=== PATIENT | male | born 1980 | race Caucasian/White ===

== ENCOUNTER 2020-04-17 02:48 | Emergency (ER) | payer MEDICARE, MEDICAID ==
[~2020-04-17] VITALS: Ht 182.9 cm; Wt 100.0 kg
[~2020-04-17 02:48] MED LIST: CLIN-97 PO
[2020-04-17] MEDS ORDERED: LORazepam 2 mg/ml vial IM ONE (02:55)
[2020-04-17] MEDS ORDERED: diphenhydrAMINE 50 mg/ml inj IM ONE (02:55)
[2020-04-17] MEDS ORDERED: haloperidol lactate 5mg/ml inj IM ONE (02:55)
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
[2020-04-17] MEDS ORDERED: haloperidol lactate 5mg/ml inj ONE (03:00)
[2020-04-17] MEDS ORDERED: normal saline 1000ml 1,000 ML IV ONE (03:05)
[2020-04-17] MEDS ORDERED: LORazepam 2 mg/ml vial IV ONE (03:10)
--- NOTE | 2020-04-17 03:11 | NUR ---
Second dose of ativan given per MD orders, for continous combativeness.
[2020-04-17] MEDS ORDERED: LORazepam 2 mg/ml vial ONE (03:14)
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
[2020-04-17 03:32] LABS: BASOPHILS % (AUTO) 0.2 % (0-1); EOSINOPHILS # (AUTO) 0.1 X10'3 (0-0.9); EOSINOPHILS % (AUTO) 0.6 % (0-6); HEMATOCRIT 44.1 % (42.0-52.0); HEMOGLOBIN 14.3 g/dl (14.0-17.9); LYMPHOCYTES # (AUTO) 1.1 X10'3 (1.1-4.8); LYMPHOCYTES % (AUTO) 7.9 % (21-51); MEAN CORPUSCULAR HEMOGLOBIN 29.8 PG (27.0-31.0); MEAN CORPUSCULAR HGB CONC 32.6 g/dL (33.0-36.5); MEAN CORPUSCULAR VOLUME 91.6 FL (78-98); MEAN PLATELET VOLUME 9.2 FL (7.4-10.4); MONOCYTES % (AUTO) 7.2 % (2-12); NEUTROPHILS % (AUTO) 84.1 % (42-75); PLATELET COUNT 350 X10'3 (140-440); RED BLOOD COUNT 4.81 X10'6 (4.70-6.10); RED CELL DISTRIBUTION WIDTH 14.4 % (11.5-14.5); WHITE BLOOD COUNT 14.3 X10'3 (4.5-11.0)
[2020-04-17 03:38] LABS: CLARITY,URINE CLEAR (Clear); COLOR,URINE YELLOW (Yellow); GLUCOSE, URINE NEGATIVE (Neg); KETONES,URINE NEGATIVE (Neg); LEUKOCYTE ESTERASE ,URINE NEGATIVE (Neg); NITRITES, URINE NEGATIVE (Neg); OCCULT BLOOD,URINE NEGATIVE (Neg); PH,URINE 6.5 (4.8-8.0); PROTEIN,URINE NEGATIVE (Neg); UROBILINOGEN,URINE 0.2 E.U/dL (0.2-1.0)
[2020-04-17 03:39] LABS: ALANINE AMINOTRANSFERASE 37 U/L (12-78); ALBUMIN 3.8 G/DL (3.4-5.0); ALKALINE PHOSPHATASE 57 IU/L (46-116); ANION GAP 16 (8-16); ASPARTATE AMINO TRANSFERASE 36 U/L (10-37); BILIRUBIN,TOTAL 0.4 MG/DL (0.1-1.0); BLOOD UREA NITROGEN 16 MG/DL (7-18); BUN/CREATININE RATIO 13.6 (5.4-32.0); CALCIUM 9.2 MG/DL (8.5-10.1); CHLORIDE 106 MMOL/L (99-107); CREATININE 1.18 MG/DL (0.60-1.10); GLUCOSE 139 MG/DL (70-104); POTASSIUM 4.5 MMOL/L (3.5-5.1); SODIUM 146 MMOL/L (135-145); TOTAL CARBON DIOXIDE 24.4 MMOL/L (24-32); TOTAL PROTEIN 7.6 G/DL (6.4-8.2); URINE AMPHETAMINE SCREEN NEGATIVE (Neg); URINE BARBITUATE SCREEN NEGATIVE (Neg); URINE BENZODIAZEPINES SCREEN NEGATIVE (Neg); URINE CANNABINOID SCREEN POSITIVE (Neg); URINE COCAINE SCREEN NEGATIVE (Neg); URINE METHADONE SCREEN NEGATIVE (Neg); URINE OPIATE SCREEN POSITIVE (Neg); URINE PHENCYCLIDINE SCREEN NEGATIVE (Neg); eGFR 68 ML/MIN
[2020-04-17 03:42] LABS: CREATINE KINASE 667 U/L (39-308); ETHANOL 0.015 GM/DL (0.0-0.010); TROPONIN I < 0.04 NG/ML (0.0-0.05)
[2020-04-17 03:47] LABS: UA COLLECTION TYPE STRAIGHT CATH
[2020-04-17] MEDS ORDERED: normal saline 1000ML IV soln IVB ONE (04:00)
[2020-04-17] MEDS ORDERED: nitroGLYCERIN 1gm ointment UD TP ONE (04:25)
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
[2020-04-17 09:53] VITALS: BP 121/74
== END 2020-04-17 09:59 | disposition home or self-care (01) ==
LOC: EDBD → ER 02:49 → MERGE 02:49 → EDBD 02:49 → ER 09:59
DX: S02.2XXA Fracture of nasal bones, initial encounter for closed fracture (principal); S80.812A Abrasion, left lower leg, initial encounter; S80.811A Abrasion, right lower leg, initial encounter; S60.512A Abrasion of left hand, initial encounter; S60.511A Abrasion of right hand, initial encounter; R41.82 Altered mental status, unspecified; F23 Brief psychotic disorder; R00.0 Tachycardia, unspecified; Y04.0XXA Assault by unarmed brawl or fight, initial encounter; Y93.89 Activity, other specified; Y92.89 Other specified places as the place of occurrence of the external cause; Y99.9 Unspecified external cause status
CPT/HCPCS: 36415; 70450; 70486; 71250; 72125; 80053; 80305; 80320; 81003; 82550; 84484; 85025; 93005; 96361; 96372; 96374; 99285; J1200; J1630; J2060; J7030